=== PATIENT | female | born 1975 | race American Indian/Alaskan Native ===

== ENCOUNTER 2018-10-31 18:37 | Emergency (ER) | payer MEDICAID ==
[2018-10-31 19:17] VITALS: BP 156/90; PULSE 96; RESP 20; TEMP 98; O2SAT 100
--- NOTE | 2018-10-31 20:08 | C.PDOC ---
History Of Present Illness 43 y/o female presents to the ED complaining of pruritic rash for the past 1.5 weeks. Patient states she was recently traveling and stayed in a cabin, unsure of possible exposure to allergen or insect bites. Additionally patient developed back pain 2 days ago, and was using spray lidocaine. Now complaining of worsened rash which is extremely itchy. She denies any fevers or chills. Time Seen by Provider: 10/31/18 19:24 Chief Complaint (Nursing): Abnormal Skin Integrity History Per: Patient History/Exam Limitations: no limitations Onset/Duration Of Symptoms: Days Current Symptoms Are (Timing): Still Present Past Medical History Reviewed: Historical Data, Nursing Documentation, Vital Signs Vital Signs: Last Vital Signs Temp 98 F 10/31/18 19:14 Pulse 96 H 10/31/18 19:14 Resp 20 10/31/18 19:14 BP 156/90 H 10/31/18 19:14 Pulse Ox 100 10/31/18 19:14 - Medical History PMH: Hypothyroidism Family History: States: No Known Family Hx - Social History Hx Alcohol Use: Yes Hx Substance Use: No - Immunization History Hx Tetanus Toxoid Vaccination: No Hx Influenza Vaccination: No Hx Pneumococcal Vaccination: No Review Of Systems Except As Marked, All Systems Reviewed And Found Negative. Constitutional: Negative for: Fever, Chills Cardiovascular: Negative for: Chest Pain Respiratory: Negative for: Shortness of Breath Musculoskeletal: Positive for: Back Pain Skin: Positive for: Rash Neurological: Negative for: Weakness, Numbness Physical Exam - Physical Exam Appears: Non-toxic, No Acute Distress Skin: Warm, Dry, Rash (Mildly scaly rash to chest and posterior trunk, con sistent with pityriasis rosea) Head: Atraumatic, Normacephalic Eye(s): bilateral: Normal Inspection Oral Mucosa: Moist Throat: Normal (patent airway), No Erythema, No Drooling Neck: Normal ROM, Supple Chest: Symmetrical Cardiovascular: Rhythm Regular, No Murmur Respiratory: Normal Breath Sounds, No Accessory Muscle Use Extremity: Bilateral: Normal Color And Temperature, Normal ROM Neurological/Psych: Oriented x3, Normal Speech ED Course And Treatment O2 Sat by Pulse Oximetry: 100 (RA) Pulse Ox Interpretation: Normal Progress Note: Counseled patient regarding diagnosis. Treated patient for possible reaction to lido with PO Benadryl and Pepcid. Patient also given oral steroid in the ED. Plan is to d/c patient home with prescriptions for pepcid, prednisone, and atarax. Advised to follow up with specialist for further evaluation. Disposition - Disposition Disposition: HOME/ ROUTINE Disposition Time: 20:05 Condition: STABLE Additional Instructions: Follow up with PMD and De Icer Installer within 1-2 days. Return to ED if feel worse. Prescriptions: hydrOXYzine HCl [Atarax] 25 mg PO Q6H #30 tab Famotidine [Pepcid] 20 mg PO BID #20 tab predniSONE [predniSONE Tab] 2 tab PO DAILY #8 tab Instructions: Skin Rash Forms: Naroomi (Chinese) - Clinical Impression Clinical Impression: Rash - PA / AGRICULTURE TECHNICIAN / Resident Statement MD/DO has reviewed & agrees with the documentation as recorded. - Scribe Statement The provider has reviewed the documentation as recorded by the Chiibmarcelle Jacob All medical record entries made by the Aminata were at my direction and personally dictated by me. I have reviewed the chart and agree that the record accurately reflects my personal performance of the history, physical exam, medical decision making, and the department course for this patient. I have also personally directed, reviewed, and agree with the discharge instructions and disposition.
== END 2018-10-31 20:33 | disposition home or self-care (01) ==
LOC: C.ER 18:37
DX: R21 Rash and other nonspecific skin eruption (principal)